=== PATIENT | male | born 1930 | race Caucasian/White ===

== ENCOUNTER 2017-04-07 15:02 | Emergency (ER) | payer MEDICARE, OTHER ==
[~2017-04-07] VITALS: Wt 81.5 kg
[~2017-04-07 15:02] MED LIST: DOCU-144 PO; HYDR25SU24 PR
[2017-04-07] MEDS ORDERED: GLIP5TAB13 PO (16:00)
[2017-04-07] MEDS ORDERED: PHENYTOIN 300 MG in SOD CHLORIDE 0.9% 50 ML IV ONE (16:00)
[2017-04-07] MEDS ORDERED: ISON300T72 PO (16:01)
--- NOTE | 2017-04-07 17:32 | ERD ---
ER Documentation Chief Complaint Date/Time DATE: 04/07/17 TIME: 17:32 Chief Complaint pain to right cheek since am HPI 87-year-old male with no past medical history presenting with right-sided facial pain. He has had this pain for quite some time, however it got worse within the past few days. The pain is worse at night. He describes it as a pulling, burning, intermittent pain. It is in his right cheek and the right jaw area. He denies any tinnitus, hearing problems or earache. No focal weakness, numbness, vision disturbance, gait instability, or dizziness. He has told his doctor about this problem but his doctor just prescribed him medication for pain. The medications are not working. He took 1 dose of ibuprofen today which did not help. ROS All systems reviewed and are negative except as per history of present illness. Medications Home Meds Active Scripts Gabapentin* (Gabapentin*) 100 Mg Capsule, 100 MG PO TID, #90 CAP Prov:RICO MACKAY MD 04/07/17 Reported Medications Isoniazid* (Isoniazid*) 300 Mg Tablet, 600 MG PO DAILY, TAB 04/07/17 Glipizide* (Glipizide*) 5 Mg Tablet, 5 MG PO AC BREAKFAST, TAB 04/07/17 Discontinued Scripts Docusate Sodium* (Colace*) 100 Mg Capsule, 100 MG PO TID, #30 CAP Prov:MEKA CORONA MD 04/15/16 Hydrocortisone Acetate* (Anusol-HC*) 25 Mg/Supp.rect Supp.rect, 1 SUPP AR HS, # 12 SUPP.RECT Prov:MEKA CORONA MD 04/15/16 Allergies Allergies: Coded Allergies: penicillin (Verified Allergy, Unknown, 04/07/17) PMhx/Soc History of Surgery: No Anesthesia Reaction: No Hx Neurological Disorder: No Hx Respiratory Disorders: Yes (Asthma, TB) Hx Cardiac Disorders: No Hx Psychiatric Problems: No Hx Miscellaneous Medical Probl: Yes (abdominal hernia, DM) Hx Alcohol Use: No Hx Substance Use: No Hx Tobacco Use: No Smoking Status: Never smoker FmHx Family History: No diabetes Physical Exam Vitals Vital Signs Date Time Temp Pulse Resp B/P Pulse Ox O2 Delivery O2 Flow Rate FiO2 04/07/17 15:10 98.6 76 20 139/68 94 Physical Exam Const: No apparent distress Head: Atraumatic Eyes: Normal Conjunctiva ENT: Normal External Ears, Nose and Mouth. Neck: Full range of motion..~ No meningismus. Resp: Clear to auscultation bilaterally Cardio: Regular rate and rhythm, no murmurs Abd: Soft, non tender, non distended. Normal bowel sounds Skin: No petechiae or rashes Back: No midline or flank tenderness Ext: No cyanosis, or edema Neur: Awake and alert and oriented 3, cranial nerves intact, strength and sensations intact in all 4 extremities, normal gait, speech, balance. There is increased pain when I touch the right side of his face in the trigeminal distribution. Psych: Normal Mood and Affect Results 24 hrs Current Medications Medications (Trade) Dose Ordered Sig/Jesús Route PRN Reason Start Time Stop Time Status Last Admin Dose Admin Phenytoin/Sodium Chloride (Dilantin/NS) 56 ml @ 46.66 mls/ hr ONCE ONCE IV 04/07/17 16:00 04/07/17 17:12 DC 04/07/17 17:07 Procedures/MDM EMERGENCY DEPARTMENT COURSE / MEDICAL DECISION MAKING: Patient is presenting with right-sided facial pain consistent with trigeminal neuralgia. He is neurovascularly intact. I have a low suspicion for intracranial hemorrhage or acute CVA. IV was placed and Dilantin was given with significant improvement of his symptoms. I will discharge the patient with a prescription for gabapentin and instructed him to follow-up with his primary care doctor to possibly get on medications to control his symptoms. I also suggested he request a referral to a neurologist. Return precautions were given. The patient was discharged in a stable condition. Patient's blood pressure was elevated (>120/80) but appears stable without evidence of hypertensive emergency or urgency. The patient was counseled about the risks of hypertension and urged to pursue outpatient monitoring and therapy within a week with their primary care physician. Departure Diagnosis: Primary Impression: Trigeminal neuralgia of right side of face Condition: Stable EKRICO HINSON MD Apr 07, 2017 17:32
[2017-04-07] MEDS ORDERED: GABA100C14 PO (17:36)
[2017-04-07 17:50] VITALS: BP 134/62; PULSE 75; RESP 18; TEMP 98.5
== END 2017-04-07 17:50 | disposition home or self-care (01) ==
LOC: E/R 15:02
DX: G50.0 Trigeminal neuralgia (principal); J45.909 Unspecified asthma, uncomplicated; E11.9 Type 2 diabetes mellitus without complications; Z79.84 Long term (current) use of oral hypoglycemic drugs
CPT/HCPCS: 96374; J1165

== ENCOUNTER 2017-06-21 17:28 | Emergency (ER) | payer MEDICARE, OTHER ==
[~2017-06-21] VITALS: Ht 167.6 cm; Wt 80.0 kg
[~2017-06-21 17:28] MED LIST changes: -DOCU-144 PO; +GABA100C14 PO; +GLIP5TAB13 PO; -HYDR25SU24 PR; +ISON300T72 PO
[2017-06-21 18:00] VITALS: Ht 167.6 cm; Wt 80.0 kg
--- NOTE | 2017-06-21 22:26 | ERD ---
ER Documentation Chief Complaint Date/Time DATE: 06/21/17 TIME: 22:23 Chief Complaint cough x yesterday HPI Patient is an 87-year-old male who presents with 2 days of gradual onset, intermittent, moderate productive cough with yellow sputum. He denies fever, shortness of breath, chest pain or back pain. He denies hemoptysis. 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 He denies having been treated for tuberculosis, but he has TB treatments documented in previous notes. He denies taking medication for diabetes, but also has diabetic medication recorded in previous notes. He denies weight loss. He was seen by his PMD yesterday, but his cough has persisted. He did not have an x-ray performed. ROS All systems reviewed and are negative except as per history of present illness. Medications Home Meds Active Scripts Guaifenesin (EXPECTORANT) 200 Mg Tablet, 200 MG PO Q4 for 5 Days, TAB Prov:LUDIN PURCELL MD 06/21/17 Albuterol Sulfate* (Proair HFA*) 8.5 Gm Hfa.aer.ad, 2 PUFF INH Q4, #1 INHALER Prov:LUDIN PURCELL MD 06/21/17 Reported Medications Acetaminophen* (Acetaminophen*) 500 MG Extra Strength Tablet, 500 MG PO Q4H Y for PAIN AND OR ELEVATED TEMP, TAB 06/21/17 Glipizide* (Glipizide*) 5 Mg Tablet, 5 MG PO AC BREAKFAST, TAB 04/07/17 Discontinued Reported Medications Isoniazid* (Isoniazid*) 300 Mg Tablet, 600 MG PO DAILY, TAB 04/07/17 Discontinued Scripts Gabapentin* (Gabapentin*) 100 Mg Capsule, 100 MG PO TID, #90 CAP Prov:RICO MACKAY MD 04/07/17 Allergies Allergies: Coded Allergies: penicillin (Verified Allergy, Unknown, 06/21/17) PMhx/Soc Past medical history: Prediabetes, asthma (according to previous documentation) , trigeminal neuralgia Past surgical history: Abdominal hernia Social history: Denies tobacco, alcohol or illicit drugs. History of Surgery: No Anesthesia Reaction: No Hx Neurological Disorder: No Hx Respiratory Disorders: Yes (Asthma, TB) Hx Cardiac Disorders: No Hx Psychiatric Problems: No Hx Miscellaneous Medical Probl: Yes (abdominal hernia, DM) Hx Alcohol Use: No Hx Substance Use: No Hx Tobacco Use: No Smoking Status: Never smoker FmHx Family History: No coronary disease, No diabetes Physical Exam Vitals Vital Signs Date Time Temp Pulse Resp B/P Pulse Ox O2 Delivery O2 Flow Rate FiO2 06/22/17 00:21 98.2 71 20 122/68 96 Room Air 06/21/17 23:01 66 18 127/63 97 Room Air 06/21/17 18:00 98.9 75 16 130/61 96 Physical Exam Const: Alert, no acute distress Head: Atraumatic Eyes: Normal Conjunctiva, No pallor, no icterus ENT: Normal External Ears, Nose and Mouth. Mucous membranes dry Neck: Full range of motion..~ No meningismus. Resp: Clear to auscultation bilaterally, No wheezes, no rales, no prolonged expiration Cardio: Regular rate and rhythm, no murmurs Abd: Soft, non tender, non distended. Normal bowel sounds Skin: No petechiae or rashes Back: No midline or flank tenderness Ext: No cyanosis, or edema Neur: Awake and alert, Cranial nerves II through XII intact bilaterally, strength and sensation full in 4 extremities. Psych: Normal Mood and Affect Result Diagram: 06/21/172241 Results 24 hrs Laboratory Tests Test 06/21/17 22:42 Sodium Level 140mmol/L Potassium Level 4.2mmol/L Chloride Level 107mmol/L Carbon Dioxide Level 26mmol/L Anion Gap 11 Blood Urea Nitrogen 11mg/dl Creatinine 0.62mg/dl Glucose Level 134mg/dl Calcium Level 8.8mg/dl Procedures/MDM MDM: Patient is an 87-year-old male with cough for 2 days productive of yellow sputum. He has not had fever, has no respiratory distress, hypoxemia, tachypnea , or abnormal lung findings. Patient has no history of underlying lung disease. He has an unremarkable chest x-ray except for left sided atelectasis. He is already been seen by his PMD yesterday. During my evaluation, the patient was not noted to cough at all. He was noted to have dry mucous membranes, but electrolytes are within normal limits. He is tolerating oral intake. He has no history of CHF or symptoms of orthopnea or PND. We will give him a prescription for albuterol and guaifenesin, and advised him to follow -up with his PMD if symptoms persist or worsen. Departure Diagnosis: Primary Impression: Cough Condition: Good LUDIN PURCELL MD Jun 21, 2017 22:26
[2017-06-21] MEDS ORDERED: ACET-141 PO (23:11)
--- NOTE | 2017-06-21 23:17 | RADRPT ---
PROCEDURE: XR Chest. CLINICAL INDICATION: Cough. TECHNIQUE: Single frontal view of the chest. COMPARISON: 05/07/2015 FINDINGS: Cardiomegaly. Mild atelectasis at the left lung base. The lungs are otherwise clear. No signs of ple ural fluid or pneumothorax are seen. The osseous structures and soft tissues are unremarkable. IMPRESSION: Mild atelectasis at the left lung base. RPTAT: [facility] Physician Abi Date Time Electronically viewed and signed by Physician Abi on 06/21/2017 23:17 RS/
[2017-06-21 23:23] LABS: CALCIUM 8.8 mg/dl (8.4-10.2); CREATININE 0.62 mg/dl (0.61-1.24); POTASSIUM 4.2 mmol/L (3.5-5.1)
[2017-06-21] MEDS ORDERED: [UNRECOGNIZED DRUG - CODE] PO (23:48)
[2017-06-21] MEDS ORDERED: ALBU8.5H3 INH (23:48)
[2017-06-22 00:21] VITALS: BP 122/68; PULSE 71; RESP 20; TEMP 98.2
== END 2017-06-22 00:22 | disposition home or self-care (01) ==
LOC: FTE 17:28 → E/R 06-22 00:22
DX: R05 Cough (principal); E11.9 Type 2 diabetes mellitus without complications; J45.909 Unspecified asthma, uncomplicated; Z79.84 Long term (current) use of oral hypoglycemic drugs
CPT/HCPCS: 71010; 80048

== ENCOUNTER → 2018-02-01 | Emergency (ER) | END | disposition home or self-care (01) ==

== ENCOUNTER 2018-02-03 23:23 | Emergency (ER) | END 2018-02-04 02:30 | disposition home or self-care (01) ==

== ENCOUNTER 2018-08-04 15:30 | Emergency (ER) | END 2018-08-04 19:08 | disposition home or self-care (01) ==

== ENCOUNTER 2018-08-31 10:23 | Emergency (ER) | END 2018-08-31 12:45 | disposition home or self-care (01) ==

== ENCOUNTER 2018-09-02 20:52 | Emergency (ER) | END 2018-09-03 01:27 | disposition home or self-care (01) ==